=== PATIENT | male | born 1985 | race Caucasian/White ===

== ENCOUNTER 2020-03-27 19:51 | Emergency (ER) | payer BC, OTHER ==
[2020-03-27] MEDS ORDERED: METOCLOPRAMIDE HCL INJ/PF 10 MG/2 ML SDV IV ONE (21:28)
[2020-03-27] MEDS ORDERED: RINGERS SOLUTION,LACTATED 1,000 ML IV ONE (21:28)
--- NOTE | 2020-03-27 21:33 | ER Document Report ---
ED Medical Screen (RME) - General Chief Complaint: Headache Stated Complaint: POSS MIGRAINE Time Seen by Provider: 03/27/20 21:22 Primary Care Provider: LA ALMAZAN MD [Primary Care Provider] - Follow up as needed Mode of Arrival: Ambulatory Information source: Patient Notes: HPI; 34-year-old male past medical history significant for migraines presents to the emergency room complaining of a migraine at started around 7 PM tonight. [facility] he had one yesterday that lasted from 10 PM until around 3 AM. has been taking multiple doses of both Tylenol and Motrin throughout the day without relief of symptoms. [facility] he took a total of 18 extra strength Tylenol between 6 AM and 6 PM as well as 12, 200 mg tablets of ibuprofen between 6 AM and 6 PM. [facility] his last dose of both medications was approximately 6 PM tonight. [facility] he normally takes Maxalt for his migraines but he ran out and his insurance will not cover a refill. He denies any recent head trauma or head injury. Denies worst headache of his life. However he has been having daily headaches. Complains of photophobia with nausea but no vomiting. PE: Alert and oriented x3. Mild distress noted. PERRLA, EOMI. lungs: Clear to auscultation without rales, rhonchi, wheezes. Heart: Regular rate rhythm without murmurs, rubs, gallops. Charge nurse aware. Nurses calling poison control for recommendations. I have greeted and performed a rapid initial assessment of this patient. A comprehensive ED assessment and evaluation of the patient, analysis of test results and completion of the medical decision making process will be conducted by additional ED providers. I have specifically instructed the patient or family members with the patient to immediately return to any nursing staff should anything change in the patient's condition or with their chief complaint. TRAVEL OUTSIDE OF THE [place] IN LAST 30 DAYS: No - Related Data Allergies/Adverse Reactions: No Known Allergies Allergy (Unverified 03/27/20 20:55) Past Medical History - Social History Chew tobacco use (# tins/day): No Frequency of alcohol use: Occasional Drug Abuse: None Physical Exam - Vital signs Vitals: Temp Pulse Resp BP Pulse Ox 97.7 F 81 20 153/95 H 97 03/27/20 20:09 03/27/20 20:09 03/27/20 20:09 03/27/20 20:09 03/27/20 20:09 Course - Vital Signs Vital signs: Temp Pulse Resp BP Pulse Ox 97.7 F 81 20 153/95 H 97 03/27/20 20:09 03/27/20 20:09 03/27/20 20:09 03/27/20 20:09 03/27/20 20:09 Doctor's Discharge - Discharge Referrals: LA ALMAZAN MD [Primary Care Provider] - Follow up as needed
[2020-03-27 22:31] LABS: ABSOLUTE BASOPHILS # (AUTO) 0.1 10^3/uL (0.0-0.2); ABSOLUTE EOSINOPHILS # (AUTO) 0.1 10^3/uL (0.0-0.6); ABSOLUTE LYMPHOCYTES (AUTO) 2.7 10^3/uL (0.5-4.7); ABSOLUTE NEUT (AUTO) 7.4 10^3/uL (1.7-8.2); BASOPHILS % (AUTO) 0.5 % (0-2); EOSINOPHILS % (AUTO) 1.2 % (0-6); HEMATOCRIT 43.7 % (37.9-51.0); HEMOGLOBIN 14.9 g/dL (13.5-17.0); LYMPHOCYTES % (AUTO) 23.8 % (13-45); MEAN CORPUSCULAR HEMOGLOBIN 32.8 pg (27.0-33.4); MEAN CORPUSCULAR VOLUME 97 fl (80-97); MONOCYTES % (AUTO) 8.7 % (3-13); PLATELET COUNT 340 10^3/uL (150-450); RED BLOOD COUNT 4.52 10^6/uL (4.35-5.55); RED CELL DISTRIBUTION WIDTH 13.7 % (11.5-14.0); SEGMENTED NEUTROPHILS % (AUTO) 65.8 % (42-78); TOTAL CELLS COUNTED % (AUTO) 100 %; WHITE BLOOD COUNT 11.2 10^3/uL (4.0-10.5)
[2020-03-27 22:44] LABS: APPEARANCE,URINE CLEAR; BILIRUBIN,URINE NEGATIVE (NEGATIVE); COLOR,URINE STRAW; GLUCOSE, URINE NEGATIVE (NEGATIVE); KETONES,URINE NEGATIVE (NEGATIVE); LEUKOCYTE ESTERASE,URINE NEGATIVE (NEGATIVE); NITRITE,URINE NEGATIVE (NEGATIVE); PROTEIN,URINE NEGATIVE (NEGATIVE); URINE SPECIFIC GRAVITY 1.011; UROBILINOGEN,URINE NEGATIVE mg/dL (<2.0)
[2020-03-27 22:52] LABS: ACETAMINOPHEN 17 ug/mL (10-30); ALBUMIN 4.6 g/dL (3.5-5.0); ALKALINE PHOSPHATASE 76 U/L (38-126); ANION GAP 10 (5-19); ASPARTATE AMINO TRANSFERASE 21 U/L (17-59); BILIRUBIN,DIRECT 0.3 mg/dL (0.0-0.4); BILIRUBIN,TOTAL 0.3 mg/dL (0.2-1.3); BLOOD UREA NITROGEN 17 mg/dL (7-20); CALCIUM 9.2 mg/dL (8.4-10.2); CARBON DIOXIDE 22 mmol/L (22-30); CHLORIDE 108 mmol/L (98-107); GLUCOSE 101 mg/dL (75-110); POTASSIUM 4.4 mmol/L (3.6-5.0); TOTAL PROTEIN 7.4 g/dL (6.3-8.2)
[2020-03-27 22:54] LABS: ALCOHOL < 10 mg/dL (NONE DETECTED); SALICYLATE < 1.0 mg/dL (2.0-20.0)
[2020-03-27 23:00] LABS: URINE AMPHETAMINES SCREEN NEGATIVE; URINE BARBITURATES SCREEN NEGATIVE; URINE BENZODIAZEPINES SCREEN NEGATIVE; URINE COCAINE SCREEN NEGATIVE; URINE MARIJUANA (THC) SCREEN NEGATIVE; URINE METHADONE SCREEN NEGATIVE; URINE PHENCYCLIDINE SCREEN NEGATIVE
[2020-03-28] MEDS ORDERED: DEXAMETHASONE SOD PHOS INJ 10 MG/1 ML VIAL IV ONE (01:04)
[2020-03-28] MEDS ORDERED: KETOROLAC TROMETHAMINE INJ/PF 30 MG/1 ML SDV IV ONE (01:04)
--- NOTE | 2020-03-28 01:13 | ER Document Report ---
ED Headache - General Chief Complaint: Headache Stated Complaint: POSS MIGRAINE Time Seen by Provider: 03/27/20 21:22 Primary Care Provider: [facility] [Outside] - Follow up as needed FLORENTINO AGUILERA MD [EMERITUS] - Follow up in 1 week (for neurology follow up) Mode of Arrival: Ambulatory TRAVEL OUTSIDE OF THE [place] IN LAST 30 DAYS: No - HPI Notes: 34-year-old male to the emergency department with complaints of right-sided headache that is been ongoing for the past several days. He states he has a history of migraines and this is typical of his migraines. He states he has previously been on Maxalt but he ran out about 2 weeks ago. He states his insurance will not cover it until March 29. Thus, he has been using Tylenol and Aleve to try to help with his migraines. He states that it always right- sided behind the eye. He always has photophobia as well as phonophobia. He has nausea. He denies an aura. He states that he has not been vomiting. He denies any fevers or chills. He states that he is also had a little bit of neck pain but no stiffness. He states that he he has had quite a bit of trouble controlling the headache today. He states that he took 18 extra strength Tylenol between the hours of 6 AM and 6 PM today to try to control his headache. - Related Data Allergies/Adverse Reactions: No Known Allergies Allergy (Unverified 03/27/20 20:55) Past Medical History - General Information source: Patient - Social History Smoking Status: Current Some Day Smoker Chew tobacco use (# tins/day): No Frequency of alcohol use: Occasional Drug Abuse: None Family History: Reviewed & Not Pertinent Patient has homicidal ideation: No Review of Systems - Review of Systems Constitutional: denies: Chills, Fever EENT: denies: Blurred vision, Tearing Cardiovascular: denies: Chest pain, Palpitations, Heart racing, Dyspnea, Syncope, Dizziness, Lightheaded Respiratory: denies: Cough, Short of breath Gastrointestinal: Nausea. denies: Abdominal pain, Diarrhea, Vomiting Musculoskeletal: See HPI, Muscle pain, Neck pain Neurological/Psychological: Headaches - With phonophobia and photophobia -: Yes All other systems reviewed and negative Physical Exam - Vital signs Vitals: Temp Pulse Resp BP Pulse Ox 97.7 F 81 20 153/95 H 97 03/27/20 20:09 03/27/20 20:09 03/27/20 20:09 03/27/20 20:09 03/27/20 20:09 Interpretation: Hypertensive - General General appearance: Appears well, Alert In distress: None - HEENT Head: Normocephalic, Atraumatic Eyes: Normal Conjunctiva: Normal Pupils: PERRL Ears: Normal External canal: Normal Tympanic membrane: Normal Sinus: Normal Nasal: Normal Mouth/Lips: Normal Mucous membranes: Normal Pharynx: Normal. No: Potential airway comprom. Neck: Normal, Supple. No: Meningismus Notes: Patient has full range of motion of his neck. He has no nuchal rigidity. He has tenderness to palpation over his right trapezius muscle with noted slight spasm. - Respiratory Respiratory status: No respiratory distress Chest status: Nontender Breath sounds: Normal. No: Rales, Rhonchi, Wheezing Chest palpation: Normal - Cardiovascular Rhythm: Regular Heart sounds: Normal auscultation Murmur: No - Abdominal Inspection: Normal Distension: No distension Bowel sounds: Normal Tenderness: Nontender Organomegaly: No organomegaly - Back Back: Normal, Nontender - Neurological Neuro grossly intact: Yes Cognition: Normal Orientation: AAOx4 Laquita Coma Scale Eye Opening: Spontaneous Laquita Coma Scale Verbal: Oriented Laquita Coma Scale Motor: Obeys Commands Laquita Coma Scale Total: 15 Speech: Normal Cranial nerves: Normal. No: Facial palsy, Forehead sparing, Gaze palsy, Sensory deficit, Tongue deviation Cerebellar coordination: Normal - no leg drift, normal heel to yo bilaterally Motor strength normal: LUE, RUE, LLE, RLE Additional motor exam normals: Equal floor clerk. No: Pronator drift, Weakness Sensory: Normal Notes: no nystagmus - Psychological Associated symptoms: Normal affect, Normal mood - Skin Skin Temperature: Warm Skin Moisture: Dry Skin Color: Normal Course - Re-evaluation Re-evalutation: 03/28/20 03:39 Impression: Migraine. Trending Tylenol is very reassuring. I advised patient not to take any more Tylenol for the next week. Also educated on appropriate dosing of extra strength Tylenol at home. He can get his Maxalt in 1 day and have encouraged him to get it filled. I will write for some Toradol tablets and Zofran for home use. He states his headache is much improved. It is now a 1 out of 5. Initially when I saw him it was about a 4 out of 5. He states he is ready to go home. Will discharge home. - Vital Signs Vital signs: Temp Pulse Resp BP Pulse Ox 98.2 F 68 16 132/78 H 99 03/28/20 02:08 03/28/20 02:08 03/28/20 02:08 03/28/20 02:08 03/28/20 02:08 - Laboratory Result Diagrams: 03/27/20 22:13 03/27/20 22:13 Laboratory results interpreted by me: 03/27/20 03/27/20 03/28/20 22:13 22:13 02:30 WBC 11.2 H Chloride 108 H Salicylates < 1.0 L Acetaminophen < 10 L 03/28/20 01:21 Laboratory 03/27/20 03/27/20 03/27/20 22:13 22:13 22:13 WBC 11.2 H RBC 4.52 Hgb 14.9 Hct 43.7 MCV 97 MCH 32.8 MCHC 34.0 RDW 13.7 Plt Count 340 Lymph % (Auto) 23.8 [place] % (Auto) 8.7 Eos % (Auto) 1.2 Baso % (Auto) 0.5 Absolute Neuts (auto) 7.4 Absolute Lymphs (auto) 2.7 Absolute Monos (auto) 1.0 Absolute Eos (auto) 0.1 Absolute Basos (auto) 0.1 Seg Neutrophils % 65.8 Sodium 139.6 Potassium 4.4 Chloride 108 H Carbon Dioxide 22 Anion Gap 10 BUN 17 Creatinine 1.00 Est GFR ( Amer) > 60 Est GFR (MDRD) Non-Af > 60 Glucose 101 Calcium 9.2 Total Bilirubin 0.3 Direct Bilirubin 0.3 Neonat Total Bilirubin Not Reportable Neonat Direct Bilirubin Not Reportable Neonat Indirect Bili Not Reportable AST 21 ALT 19 Alkaline Phosphatase 76 Total Protein 7.4 Albumin 4.6 Lipase Urine Color STRAW Urine Appearance CLEAR Urine pH 6.0 Ur Specific [place] 1.011 Urine Protein NEGATIVE Urine Glucose (UA) NEGATIVE Urine Ketones NEGATIVE Urine Blood NEGATIVE Urine Nitrite NEGATIVE Urine Bilirubin NEGATIVE Urine Urobilinogen NEGATIVE Ur Leukocyte Esterase NEGATIVE Urine WBC (Auto) 0 Urine Mucus (Auto) RARE Urine Ascorbic Acid NEGATIVE Salicylates < 1.0 L Urine Opiates Screen Urine Methadone Screen Acetaminophen 17 Ur Barbiturates Screen Ur Phencyclidine Scrn Ur Amphetamines Screen U Benzodiazepines Scrn Urine Cocaine Screen U Marijuana (THC) Screen Serum Alcohol < 10 03/27/20 03/27/20 22:13 22:13 WBC RBC Hgb Hct MCV MCH MCHC RDW Plt Count Lymph % (Auto) [place] % (Auto) Eos % (Auto) Baso % (Auto) Absolute Neuts (auto) Absolute Lymphs (auto) Absolute Monos (auto) Absolute Eos (auto) Absolute Basos (auto) Seg Neutrophils % Sodium Potassium Chloride Carbon Dioxide Anion Gap BUN Creatinine Est GFR ( Amer) Est GFR (MDRD) Non-Af Glucose Calcium Total Bilirubin Direct Bilirubin Neonat Total Bilirubin Neonat Direct Bilirubin Neonat Indirect Bili AST ALT Alkaline Phosphatase Total Protein Albumin Lipase 58.0 Urine Color Urine Appearance Urine pH Ur Specific [place] Urine Protein Urine Glucose (UA) Urine Ketones Urine Blood Urine Nitrite Urine Bilirubin Urine Urobilinogen Ur Leukocyte Esterase Urine WBC (Auto) Urine Mucus (Auto) Urine Ascorbic Acid Salicylates Urine Opiates Screen NEGATIVE Urine Methadone Screen NEGATIVE Acetaminophen Ur Barbiturates Screen NEGATIVE Ur Phencyclidine Scrn NEGATIVE Ur Amphetamines Screen NEGATIVE U Benzodiazepines Scrn NEGATIVE Urine Cocaine Screen NEGATIVE U Marijuana (THC) Screen NEGATIVE Serum Alcohol Discharge - Discharge Clinical Impression: Migraine Qualifiers: Migraine type: unspecified Status migrainosus presence: without status migrainosus Intractability: not intractable Qualified Code(s): G43.909 - Migraine, unspecified, not intractable, without status migrainosus Condition: Stable Disposition: HOME, SELF-CARE Instructions: Headache ([facility]) Additional Instructions: Future Maxalt filled on March 29. Take medicine as prescribed. Push fluids. Rest at home. Return if any worsening symptoms. Follow-up with primary care neurology. Do not take any Tylenol for the next 5 days. After that the appropriate dose for Tylenol is 2 extra strength every 6 hours do not exceed 4 g in a day Prescriptions: Ketorolac Tromethamine [Toradol 10 mg Tablet] 10 mg PO Q8HP PRN #9 tablet PRN Reason: Ondansetron [Zofran Odt 4 mg Tablet] 1 - 2 tab PO Q4H PRN #15 tab.rapdis PRN Reason: For Nausea/Vomiting Referrals: [facility] [Outside] - Follow up as needed FLORENTINO AGUILERA MD [EMERITUS] - Follow up in 1 week (for neurology follow up)
[2020-03-28] MEDS ORDERED: METOCLOPRAMIDE HCL INJ/PF 10 MG/2 ML SDV IV ONE (01:45)
[2020-03-28 03:43] VITALS: BP 144/84
== END 2020-03-28 03:44 | disposition home or self-care (01) ==
LOC: ER 19:51
DX: G43.009 Migraine without aura, not intractable, without status migrainosus (principal); H53.149 Visual discomfort, unspecified; R11.0 Nausea; M54.2 Cervicalgia; M62.830 Muscle spasm of back; F17.200 Nicotine dependence, unspecified, uncomplicated
CPT/HCPCS: 99283; 96361; 96374; 96375; 36415; 80307 ×4; 83690; 85025; 80053; 81001; J1885; J2765; J7120; J1100